=== PATIENT | female | born 1990 | race American Indian/Alaskan Native ===

== ENCOUNTER 2020-08-08 10:05 | Outpatient (CLI) | payer BC ==
--- NOTE | 2020-08-08 15:28 | Ultrasound Report ---
BILATERAL DIGITAL DIAGNOSTIC MAMMOGRAM WITH CAD CONVENTIONAL, 08/08/2020 RIGHT LIMITED BREAST ULTRASOUND CLINICAL INFORMATION / INDICATION: Patient presents for evaluation of an area of palpable concern in the right axilla. BREAST LUMP RIGHT TECHNIQUE: Digital bilateral mammographic imaging was performed. Spot compression views were obtained . Limited ultrasound was performed. This examination was interpreted with the benefit of Computer-Aid ed Detection (CAD) analysis. COMPARISON: None. FINDINGS: Breast Density: The breasts are extremely dense, which lowers the sensitivity of mammography. MAMMOGRAPHIC FINDINGS: There is a 1.1 cm partially visualized prominent lymph node underlying the mar ker denoting site of palpable concern in the right axilla. Otherwise, no dominant mass, suspicious ca lcifications, or architectural distortion in either breast. ULTRASOUND FINDINGS: Targeted ultrasound evaluation was performed of the area of interest. Targeted ultrasound of the area of palpable concern in the right axilla reveals numerous pathologically enlar ged right axillary lymph nodes with diffuse cortical thickening measuring up to approximately 8 mm in thickness. IMPRESSION: 1. Numerous pathologically enlarged right axillary lymph nodes are seen at the site of palpable nate rn in the right axilla. Ultrasound-guided biopsy of one of the lymph nodes was subsequently performed . Follow up recommendation: Biopsy BI-RADS Category 4: Suspicious for Malignancy. A "normal" or negative report should not discourage follow up or biopsy of a clinically significant f inding. A written summary of these findings will be mailed to the patient. The patient will be entered into a mammography reporting system which will generate a reminder letter for the patient's next appointmen t at the appropriate interval. According to the [employer], yearly mammograms are recommended starting at age 40 and continuing as long as a woman is in good health. Breast MRI is recommended for women with an krystina roximately 20-25% or greater lifetime risk of breast cancer, including women with a strong family his tory of breast or ovarian cancer and women who have been treated for Hodgkin's disease. Signer Name: Deisy Barnes MD Signed: 08/08/2020 3:19 PM Workstation Name: [id number]
--- NOTE | 2020-08-08 15:29 | Ultrasound Report ---
ULTRASOUND GUIDED RIGHT BREAST BIOPSY, 08/08/2020 CLINICAL INFORMATION / INDICATION: RT PALPABLE LYMPH NODE. COMPARISON: Mammogram and right axillary ultrasound same day PROCEDURE: Risks, benefits, and indications to the procedure were discussed with the patient in detail, includin g bleeding, infection, hematoma formation, and inadequate tissue sampling. The patient agreed to proc eed with both verbal and written consent. A timeout procedure was performed with two patient identifi ers. The breast was prepped and draped in the usual sterile fashion. Lidocaine 1% with and without epineph rine were used for local anesthesia. Under direct ultrasound guidance, multiple core samples were obt ained of one of the enlarged right axillary lymph nodes. A biopsy marker was then placed. Biopsy dev ice was removed and hemostasis achieved with manual pressure. A sterile dressing was applied to the s kin. The patient tolerated the procedure without difficulty. No complications were encountered. Postbiopsy instructions were discussed with the patient and given in writing. Specimens were sent to pathology. Two of the specimens were placed in formalin for routine histologic analysis, and two of the specimens were placed in RPMI solution for flow cytometry. IMPRESSION: 1. Technically successful ultrasound guided right axillary lymph node biopsy. Biopsy results are pending and will be reported in an addendum. Signer Name: Deisy Barnes MD Signed: 08/08/2020 3:20 PM Workstation Name: [id number]
== END 2020-08-08 10:06 | disposition home or self-care (01) ==
LOC: SPVWC 10:05
PROVIDERS: ATTEND Surgery
DX: N63.11 Unspecified lump in the right breast, upper outer quadrant (principal); R92.8 Other abnormal and inconclusive findings on diagnostic imaging of breast
CPT/HCPCS: 38505; 76942; 77066; 88305; 88312